=== PATIENT | female | born 1950 | race Caucasian/White ===

== ENCOUNTER 2016-08-31 12:36 | Emergency (ER) | payer OTHER, MEDICARE ==
--- NOTE | 2016-08-31 14:06 | XRAY ---
Indication: Left arm weakness. Multiple contiguous axial images obtained through the head without contrast. Comparison: None Ventriculosulcal pattern appears symmetric. Remote appearing left thalamic lacunar infarct. No acute intracranial hemorrhage, abnormal extra-axial fluid collection, or mass effect. Fourth ventricle is midline without hydrocephalus. Bony calvarium intact. Visualized paranasal sinuses and mastoid air cells are pneumatized and clear. Impression: Left thalamic remote lacunar infarct. No acute intracranial abnormalities. CT DI 90.14
--- NOTE | 2016-08-31 14:22 | ERPHSYRPT ---
- History of Present Illness Time Seen by Provider: 08/31/16 13:00 Source: patient Exam Limitations: clinical condition Patient Subjective Stated Complaint: pt arrived from work with numbness and tingling to left arm with weakness to hand. 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 able to walk in Physician History: PATIENT WITH HISTORY OF HYPERTENSION, CORONARY ARTERY DISEASE EMPLOYED IN [employer]PARTMENT FOR 20 YEARS WHILE WORKING COMPLAINS OF NUMBNESS WITH WEAKNESS IN LEFT FINGERS OF HANDS FOR A DURATION OF 1 HOUR. DENIES SLURRED SPEECH, HEADACHE, BLURRED VISION, LEFT ARM WEAKNESS OR UNSTABLE GAIT. STATES HER SYMPTOMS RESOLVED UPON ARRIVAL TO EMERGENCY ROOM. Timing/Duration: today Severity: moderate Character of Deficits: new weakness, altered sensation, LUE Deficits: weak (TRANSIENT WEAKNESS, NUMBNESS LEFT FINGERS) Baseline/Normal Cognition: alert oriented x 3 Current Cognition: alert oriented x 3 Baseline Gait: walks w/o assistance Associated Symptoms: denies symptoms Allergies/Adverse Reactions: No Known Drug Allergies Allergy (Unverified 08/31/16 12:47) Home Medications: Aspirin 162 mg PO DAILY 07/31/13 [History] Benazepril/Hydrochlorothiazide [Benazepril-Hctz 20-12.5 mg Tab] 1 each PO DAILY 07/31/13 [History] Metoprolol Tartrate 25 mg [Lopressor 25MG Tab] 25 mg PO DAILY 07/31/13 [ History] Multivitamin [Multi Vitamin Daily] 1 each PO DAILY 07/31/13 [History] Pravastatin Sodium 20 mg PO DAILY 07/31/13 [History] Calcium Carbonate/Vitamin D3 [Calcium 250+D Tablet] 1 ea WE 08/31/16 [History] Hx Influenza Vaccination/Date Given: Yes Hx Pneumococcal Vaccination/Date Given: Yes Immunizations Up to Date: Yes - Review of Systems Constitutional: No Fever, No Chills Eyes: No Symptoms Ears, Nose, & Throat: No Symptoms Respiratory: No Cough, No Dyspnea Cardiac: No Chest Pain, No Edema, No Syncope Abdominal/Gastrointestinal: No Abdominal Pain, No Nausea, No Vomiting, No Diarrhea Genitourinary Symptoms: No Dysuria Musculoskeletal: No Back Pain, No Neck Pain Skin: No Rash Neurological: Parasthesia, No Dizziness, No Focal Weakness, No Sensory Changes Psychological: No Symptoms Endocrine: No Symptoms All Other Systems: Reviewed and Negative - Past Medical History Pertinent Past Medical History: Yes Neurological History: No Pertinent History ENT History: No Pertinent History Cardiac History: Congestive Heart Failure, Hypertension Respiratory History: No Pertinent History Endocrine Medical History: Diabetes Type II Musculoskeletal History: Fractures GI Medical History: No Pertinent History History: No Pertinent History Psycho-Social History: No Pertinent History Female Reproductive Disorders: No Pertinent History - Past Surgical History Past Surgical History: Yes Neuro Surgical History: No Pertinent History Cardiac: Cardiac Catheterization, Cardiac Stent Respiratory: No Pertinent History Gastrointestinal: Cholecystectomy Genitourinary: No Pertinent History Musculoskeletal: Orthopedic Surgery Female Surgical History: Tubal Ligation, Other Other Surgical History: arm surg,tonsil - Social History Smoking Status: Never smoker Exposure to second hand smoke: No Drug Use: none Patient Lives Alone: Yes - Female History Hx Last Menstrual Period: post - Nursing Vital Signs Nursing Vital Signs: Initial Vital Signs Temperature 97 F Temperature Source Oral Pulse Rate 93 Respiratory Rate 16 Blood Pressure [Right Arm] 141/94 Pain Intensity 0 - Fowler Coma Scale Best Eye Response ([place]): (4) open spontaneously Best Verbal Response ([place]): (5) oriented Best Motor Response ([place]): (6) obeys commands [place] Total: 15 - Physical Exam General Appearance: no apparent distress, alert Eye Exam: bilateral eye: PERRL, EOMI Ears, Nose, Throat Exam: normal ENT inspection, moist mucous membranes Neck Exam: normal inspection, non-tender, supple Respiratory: normal breath sounds, lungs clear, airway intact, No respiratory distress Cardiovascular: regular rate/rhythm, No edema Gastrointestinal: soft, No tenderness, No distention Back Exam: normal inspection Extremity Exam: normal inspection, normal range of motion, other (NEGATIVE TINELS SIGN), No pedal edema Peripheral Pulses: carotid (R): 0, 2+, carotid (L): 2+, femoral (R): 2+, femoral (L): 2+, dorsalis-pedis (R): 2+, dorsalis-pedis (L): 2+ Mental Status: alert, oriented x 3 apparel cutter Exam: normal hearing, normal speech, PERRL, tongue midline Coordination/Gait: normal finger to nose, normal gait, normal cerebellar function Motor/Sensory: no motor deficit, no sensory deficit DTR: bicep (R): 2+, bicep (L): 2+, tricep (R): 2+, tricep (L): 2+, knee (R): 2+ , knee (L): 2+, ankle (R): 2+, ankle (L): 2+ Skin Exam: normal color, warm, dry, No rash SpO2 Interpretation: normal SpO2: 91 Oxygen Delivery: Room Air - CT Exams Head CT Interpretation: Discussed w/radiologist (LEFT THALAMIC REMOTE LACUNAR INFARCT ) Ordered Tests: Active Orders 24 hr Category Date Time Status HEAD WITHOUT CONTRAST [CT] Routine Exams 08/31/16 13:40 Completed - Progress Counseled pt/family regarding: diagnosis, need for follow-up - Departure Time of Disposition: 14:39 Departure Disposition: Home Clinical Impression: CARPAL TUNNEL SYNDROME LEFT WRIST Condition: Stable Critical Care Time: No Additional Instructions: CONTINUE ALL CURRENT MEDICATIONS. FOLLOWUP UP WITH FAMILY PHYSICIAN FOR EVALUATION AND REVIEW OF HEAD CT SCAN RESULTS.
[2016-08-31 14:52] VITALS: BP 119/77; PULSE 80; O2SAT 98
== END 2016-08-31 14:51 | disposition home or self-care (01) ==
LOC: ED 12:36
DX: G56.02 Carpal tunnel syndrome, left upper limb (principal); I10 Essential (primary) hypertension; I25.10 Atherosclerotic heart disease of native coronary artery without angina pectoris
CPT/HCPCS: 70450; 99284

== ENCOUNTER 2018-04-18 06:06 | Day surgery (SDC) | payer OTHER, MEDICARE ==
[2018-04-18] MEDS ORDERED: DIPRIVAN 200 MG/20 ML IV ONE (06:07)
[2018-04-18] MEDS ORDERED: Ketamine HCl 50 MG/ML IV ONE (06:07)
[2018-04-18] MEDS ORDERED: Lactated Ringers 1,000 ML IV SCH (07:00)
[2018-04-18 08:44] VITALS: O2SAT 100
[2018-04-18 09:16] VITALS: BP 144/96; PULSE 76
--- NOTE | 2018-04-18 12:49 | OP ---
SURGERY DATE/TIME: 04/18/2018 0754 PREOPERATIVE DIAGNOSIS: Screening exam. POSTOPERATIVE DIAGNOSIS: Normal colon. A few scattered sigmoid diverticula. PROCEDURE: Colonoscopy. SURGEON: Dr. Rose. ANESTHESIA: MAC. Medications given by anesthesia department. HISTORY: The patient is a 67 year-old white female who presents now for screening colonoscopy. She was appraised of the risks of the procedure including the risk of perforation, phlebitis, untoward reaction to medication, bleeding and missed lesions. The patient verbalized her understanding and desired to have the procedure performed. DESCRIPTION OF PROCEDURE: The patient was given the medications by the anesthesia department. She had continuous pulse oximetry, ECG monitoring, intermittent blood pressure monitoring and tidal CO2 monitoring during the examination. She was placed in the left lateral decubitus position. A digital rectal examination was performed and revealed normal anal sphincter tone and no masses. The flexible Olympus pediatric colonoscope was used to intubate the rectum. A view of the colon was developed sequentially to the cecum. Upon insertion and withdrawal, including a retroflex view in the rectum there was noted a few scattered sigmoid diverticula otherwise no mucosal lesions were encountered. The scope was removed from the patient who tolerated the procedure well and was sent back to OP recovery in good condition. The prep was noted to be fair to good.
== END 2018-04-18 09:32 | disposition home or self-care (01) ==
LOC: SDC 06:06
PROVIDERS: ATTEND Family Medicine
DX: Z12.11 Encounter for screening for malignant neoplasm of colon (principal); E11.9 Type 2 diabetes mellitus without complications; K57.30 Diverticulosis of large intestine without perforation or abscess without bleeding
CPT/HCPCS: 82962; 94250; J2704

== ENCOUNTER 2024-02-01 06:34 | Day surgery (SDC) | payer MEDICARE ==
[2024-02-01 06:53] VITALS: RESP 18
[2024-02-01] MEDS ORDERED: Lactated Ringers 1,000 ML IV ONE (06:58)
[2024-02-01] MEDS: Lactated Ringers 1,000 ML IV SCH (07:13)
[2024-02-01] MEDS ORDERED: DIPRIVAN 200 MG/20 ML IV ONE ×2 (07:55→08:23)
[2024-02-01 09:01] VITALS: TEMP 97.6; O2SAT 96
[2024-02-01 09:08] VITALS: BP 140/83; PULSE 60
--- NOTE | 2024-02-03 09:17 | OP ---
SURGERY DATE/TIME: 02/01/2024 [id number] PREOPERATIVE DIAGNOSIS: Positive Cologuard test and previous history of colon polyps. POSTOPERATIVE DIAGNOSIS: Small rectal polyp. PROCEDURE: Colonoscopy with cold forceps biopsy of small rectal polyp. SURGEON: Gadiel Rose MD ANESTHESIA: Medication given by the anesthesia department. INDICATIONS: The patient is a 73-year-old black female presenting now for colonoscopic evaluation. She reports that she has had previous colonoscopies, the first of which she had colon polyps. Since then, she has not. She most recently had a Cologuard test which was positive, prompting her to have reevaluation at this time. The patient was appraised of risks of the procedure including risk of perforation, phlebitis, untoward reaction to medication, bleeding, and missed lesions. The patient verbalized her understanding and desired to have the procedure performed. DESCRIPTION OF PROCEDURE AND FINDINGS: The patient was given medication by the anesthesia department. She had continuous pulse oximetry, ECG monitoring, and intermittent blood pressure monitoring during the examination. She was placed in the left lateral decubitus position. Digital rectal examination was performed and revealed external hemorrhoids. No masses were felt. The flexible Olympus videocolonoscope was used to intubate the rectum. A view of the colon was developed sequentially to the cecum. Upon insertion and withdrawal, there was noted a small polyp in the rectum. This was biopsied and destroyed using 1 pass of the cold forceps biopsy instrument. No other mucosal lesions being encountered, the scope was removed from the patient who tolerated the procedure well and sent back to outpatient recovery in good condition. The prep was noted to be fairly good.
== END 2024-02-01 09:20 | disposition home or self-care (01) ==
LOC: SDC 06:34
PROVIDERS: ATTEND Family Medicine
DX: Z09 Encounter for follow-up examination after completed treatment for conditions other than malignant neoplasm (principal); Z86.010 Personal history of colon polyps; R19.5 Other fecal abnormalities; E11.9 Type 2 diabetes mellitus without complications; D12.8 Benign neoplasm of rectum; K64.4 Residual hemorrhoidal skin tags
CPT/HCPCS: 82947; 93005; 99100; J2704

== ENCOUNTER 2024-04-19 14:38 | Emergency (ER) | payer MEDICARE ==
--- NOTE | 2024-04-19 15:06 | XRAY ---
Indication: Numbness. Stroke. Multiple contiguous axial images obtained through the head without contrast. Comparison: August 31, 2016 Age-appropriate global atrophy with mild periventricular degenerative micro-ischemia bilaterally. Stable left thalamic remote lacunar infarct. New finding right thalamic remote lacunar infarct. No acute intracranial hemorrhage, abnormal extra-axial fluid collection, or mass effect. Fourth ventricle is midline without hydrocephalus. Bony calvarium intact. Visualized paranasal sinuses and mastoid air cells are clear. Impression: Nonacute senile brain with remote bilateral thalamic lacunar infarcts.
--- NOTE | 2024-04-19 15:06 | ERPHSYRPT ---
- History of Present Illness Time Seen by Provider: 04/19/24 14:41 Source: patient, family Exam Limitations: no limitations Patient Subjective Stated Complaint: while in the car pt started slurring and garbling her speech and having left sided numbness, had similiar episodes earlier this past week Triage Nursing Assessment: Pt brought to the ER by her daughter in law, hypertensive, rates head pain as 3/10, pulses normal, skin n/w/d, no deficits at this time, no difficulty breathing, doesn't appear to be in any distress Physician History: 73-year-old female with multiple medical problems including coronary artery d isease with stenting, paroxysmal atrial fibrillation on Xarelto, hypertension, hyperlipidemia, diabetes mellitus, recent TIAs with our workup done at [facility], discharged last night was going to her routine appointment with cardiology and all of a sudden started to have some garbling of speech, numbness on the left upper extremity which lasted for few minutes and started to improve on presentation in the ER. During my evaluation patient has no difficulty speech, no numbness tingling or focal weakness. Denies any chest pain palpitations or shortness of breath. Allergies/Adverse Reactions: sulfamethoxazole [From Bactrim] Allergy (Verified 04/19/24 15:00) Rash trimethoprim [From Bactrim] Allergy (Verified 04/19/24 15:00) Rash Home Medications: Pravastatin Sodium 40 mg PO DAILY 07/31/13 [History] Omeprazole 20 MG [Prilosec 20 mg] 20 mg PO DAILY 04/15/18 [History] Rivaroxaban [Xarelto] 20 mg PO DAILY 04/15/18 [History] Alendronate Sodium 70 mg [Fosamax 70 MG] 70 mg PO WEEKLY 12/29/23 [History] Allopurinol 100 mg [Zyloprim 100 mg] 1 tab PO DAILY 12/29/23 [History] Buspirone HCl 5 mg [Buspar 5 mg] 10 mg PO BID 12/29/23 [History] Calcium Carb/Vitamin D 500 mg* [Calcium 500MG W/Vit D Tablet] 2 tab PO DAILY 0 12/29/23 [History] Clopidogrel Bisulfate [Clopidogrel] 75 mg PO DAILY 12/29/23 [History] Ferrous Sulfate 1 tab PO DAILY 12/29/23 [History] Metformin HCl [Metformin ER Osmotic] 500 tab PO BID 12/29/23 [History] Metoprolol Succinate 50 mg [Toprol Xl 50 MG] 50 mg PO BID 12/29/23 [History] PARoxetine HCL [Paroxetine HCl] 20 mg PO DAILY 12/29/23 [History] glyBURIDE [Glyburide] 2.5 mg PO BID 12/29/23 [History] Benazepril HCl [Lotensin] 20 mg PO DAILY 04/19/24 [History] Meloxicam 15 mg [Meloxicam 15 MG] 15 mg PO DAILY 04/19/24 [History] Hx Influenza Vaccination/Date Given: Yes Hx Pneumococcal Vaccination/Date Given: Yes Travel Risk - International Travel Have you traveled outside of the country in past 3 weeks: No - Emerging Infectious Disease Are you exhibiting symptoms associated with any current EIDs: No - Review of Systems Constitutional: No Symptoms Eyes: No Symptoms Ears, Nose, & Throat: No Symptoms Respiratory: No Symptoms Cardiac: No Symptoms Abdominal/Gastrointestinal: No Symptoms Genitourinary Symptoms: No Symptoms Musculoskeletal: No Symptoms Skin: No Symptoms Neurological: No Symptoms Endocrine: No Symptoms Hematologic/Lymphatic: No Symptoms - Past Medical History Pertinent Past Medical History: Yes Neurological History: TIA ENT History: No Pertinent History Cardiac History: Arrhythmia, Congestive Heart Failure, Coronary Artery Disease, Hypertension Respiratory History: No Pertinent History Endocrine Medical History: Diabetes Type II Musculoskeletal History: Fractures GI Medical History: No Pertinent History History: No Pertinent History Psycho-Social History: No Pertinent History Female Reproductive Disorders: No Pertinent History - Past Surgical History Past Surgical History: Yes Neuro Surgical History: No Pertinent History Cardiac: Cardiac Catheterization, Cardiac Stent Respiratory: No Pertinent History Gastrointestinal: Cholecystectomy Genitourinary: No Pertinent History Musculoskeletal: Orthopedic Surgery Female Surgical History: Tubal Ligation, Other Other Surgical History: arm surg,tonsil - Social History Smoking Status: Never smoker Exposure to second hand smoke: No Drug Use: none Patient Lives Alone: Yes - Social Determinants of Health Will the patient participate in the screening: Yes Do you worry about a steady place to live?: No Do you have any problems with any of the following?: No known problems In the past 12 months,have you had to go without utilities?: No Transportation Issues: No Has anyone in your support network made you feel unsafe?: No Have you or anyone in your house had to go without enough: No - Nursing Vital Signs Nursing Vital Signs: Initial Vital Signs Pulse Rate 111 H 04/19/24 16:15 Respiratory Rate 20 04/19/24 16:15 Blood Pressure 163/87 04/19/24 16:15 O2 Sat by Pulse Oximetry 94 L 04/19/24 16:15 Pain Scale Pain Intensity 0 - [place] Coma Scale Best Eye Response ([place]): (4) open spontaneously Best Verbal Response ([place]): (5) oriented Best Motor Response ([place]): (6) obeys commands [place] Total: 15 - Physical Exam General Appearance: no apparent distress, alert Eye Exam: bilateral eye: normal inspection, PERRL, EOMI Ears, Nose, Throat Exam: normal ENT inspection, TMs normal, pharynx normal, moist mucous membranes Neck Exam: normal inspection, non-tender, supple, full range of motion Respiratory: normal breath sounds, lungs clear Cardiovascular: regular rate/rhythm, normal heart sounds Gastrointestinal: soft, normal bowel sounds, No tenderness Back Exam: normal inspection Extremity Exam: normal inspection, normal range of motion Mental Status: alert, oriented x 3, cooperative laundry machine operator Exam: normal hearing, normal speech, PERRL Coordination/Gait: normal finger to nose, normal cerebellar function Motor/Sensory: no motor deficit, no sensory deficit, no pronator drift, negative Babinski's sign DTR: bicep (R): 2+, bicep (L): 2+, knee (R): 2+, knee (L): 2+ Skin Exam: normal color SpO2 Interpretation: normal SpO2: 96 O2 Delivery: Room Air - Course EKG Interpreted by Me: RATE (92), Sinus Rhythm, NORMAL AXIS, Q-wave, Other (Prolonged QTc interval, nonspecific ST and T wave changes second EKG rate 80 bpm, sinus rhythm, normal axis, PVCs, no ST elevations or depressions, nonspecific T wave changes.) Ordered Tests: Active Orders 24 hr Category Date Time Status Manager Home STAT Care 04/19/24 15:04 Active EKG-ER Only STAT Care 04/19/24 15:00 Active IV Insertion STAT Care 04/19/24 15:00 Active CHEST 1 VIEW (PORTABLE) Stat Exams 04/19/24 15:[address] ANGIOGRAPHY NECK [CT] Stat Exams 04/19/24 15:58 Taken CTA HEAD W AND/OR WO CONTRAST [CT] Stat Exams 04/19/24 15:58 Taken HEAD WITHOUT CONTRAST [CT] Stat Exams 04/19/24 14:39 Completed CBC W DIFF Stat Lab 04/19/24 15:15 Completed CMP Stat Lab 04/19/24 15:15 Completed CULTURE,URINE Stat Lab 04/19/24 16:18 Received MAGNESIUM Stat Lab 04/19/24 15:15 Completed NT PRO BNPII Stat Lab 04/19/24 15:15 Completed TROPONIN Stat Lab 04/19/24 15:15 Completed UA W/RFX UR CULTURE Stat Lab 04/19/24 16:18 Completed Medication Summary Generic Name Dose Route Start Last Admin Trade Name Freq PRN Reason Stop Dose Admin Magnesium Sulfate/Dextrose 100 mls @ 100 mls/hr 04/19/24 17:30 04/19/24 18:05 Magnesium 1 Gm / 100 Ml D5w IV 04/19/24 19:29 100 mls/hr Q1H HITESH Administration Discontinued Medications Generic Name Dose Route Start Last Admin Trade Name Freq PRN Reason Stop Dose Admin Ceftriaxone Sodium 2 gm in 100 mls @ 200 mls/hr 04/19/24 17:48 Rocephin 2 Gm/100 Ml Nacl IV 04/19/24 18:17 STAT ONE Lab/Rad Data: Laboratory Result Diagrams 04/19/24 15:15 04/19/24 15:15 Laboratory Results 04/19/24 04/19/24 04/19/24 Range/Units 16:18 15:15 15:15 WBC 8.6 (3.98-10.04) x10^3/uL RBC 3.88 L (3.93-5.22) x10^6/uL Hgb 11.8 (11.2-15.7) g/dL Hct 37.2 (34.1-44.9) % MCV 95.9 H (79.4-94.8) fL MCH 30.4 (25.6-32.2) pg MCHC 31.7 L (32.2-35.5) g/dL RDW 13.9 (11.7-14.4) % Plt Count 180 L (182-369) x10^3/uL MPV 9.0 L (9.4-12.3) fL Gran % 74.4 H (34.0-71.1) % Immature Gran % (Auto) 0.4 (0.001-0.429) % Nucleat RBC Rel Count 0.0 (0.00-0.2) % Eos # (Auto) 0.18 (0.04-0.36) x10^3/uL Immature Gran # (Auto) 0.03 (0.001-0.031) x10^3u/L Absolute Lymphs (auto) 1.22 (1.18-3.74) x10^3/uL Absolute Monos (auto) 0.71 (0.24-0.86) x10^3/uL Absolute Nucleated RBC 0.00 (0.00-0.012) x10^3u/L Lymphocytes % 14.3 L (19.3-51.7) % Monocytes % 8.3 (4.7-12.5) % Eosinophils % 2.1 (0.7-5.8) % Basophils % 0.5 (0.1-1.2) % Absolute Granulocytes 6.37 H (1.56-6.13) x10^3/uL Basophils # 0.04 (0.01-0.08) x10^3/uL Sodium 135 (135-145) mmol/L Potassium 3.9 (3.5-5.1) mmol/L Chloride 104 (98-107) mmol/L Carbon Dioxide 24 (22-30) mmol/L Anion Gap 11.0 (5-15) MEQ/L BUN 16 (7-17) mg/dL Creatinine 0.85 (0.52-1.04) mg/dL Estimated GFR 71.9 ML/MIN Glucose 141 H (74-106) mg/dL Calcium 8.8 (8.4-10.2) mg/dL Magnesium 1.4 L (1.6-2.3) mg/dL Total Bilirubin 1.50 H (0.2-1.3) mg/dL AST 37 H (14-36) U/L ALT 25 (0-35) U/L Alkaline Phosphatase 52 (38-126) U/L Troponin I 0.229 H* (0.000-0.033) ng/mL NT-Pro-B Natriuret Pep 4050 (<300) pg/mL Serum Total Protein 6.8 (6.3-8.2) g/dL Albumin 3.8 (3.5-5.0) g/dL Urine Color Dark Yellow A (Yellow) Urine Appearance Cloudy A (Clear) Urine pH 5.5 (4.6-8.0) Ur Specific [place] 1.025 (1.005-1.030) Urine Protein 30 (Negative) Urine Glucose (UA) Negative (Negative) mg/dL Urine Ketones Trace A (Negative) Urine Blood Trace (Negative) Urine Nitrite Positive A (Negative) Urine Bilirubin Negative (Negative) Urine Urobilinogen 0.2 (0.2) mg/dL Ur Leukocyte Esterase Moderate A (Negative) U Hyaline Cast (Auto) NONE SEEN (0-2) /LPF Urine Microscopic RBC 0-2 (0-5) /HPF Urine Microscopic WBC 21-50 A (0-5) /HPF Ur Epithelial Cells Rare (None Seen) /HPF Calcium Oxalate Crystal 11-25 A (None Seen) /HPF Urine Bacteria Moderate A (None Seen) /HPF Urine Culture Reflexed YES (NO) - Progress Progress: improved Progress Note: 04/19/24 18:22 73-year-old with history of paroxysmal atrial fibrillation on Xarelto, CAD with stenting, diabetes mellitus is evaluated in the ER for recurrent episodes of TIA. Patient is asymptomatic while in the ER. CT head is negative. EKG is sinus rhythm with no ST elevation, does have some T wave flattening and inversion in anteroseptal leads. She has no chest pain. [facility] neurology consult is obtained who has seen patient, recommended starting her on aspirin and holding Plavix and getting CTA head and neck. CTA head and neck are obtained which are negative for any occlusive findings. Normal white count, chemistries fairly unremarkable but has elevated troponin of 0.2, patient does not have any chest pain and repeat EKG is not any change. We do not have beds available at [facility], no neurology services are available in [place]. Patient does not want to go back to [facility], I have called [facility] and have d/w Dr. Murrell neurology at [place], yunier ac history, workup, agreed with transfer to hospitalist service. 04/19/24 18:[address] Dorsey hospitalist at [facility] and patient is excepted for transfer. Discussed with Dr.: Other (Dr. Willow ELLISON neurology, Dr. Murrell neurology [facility], Dr. Dorsey hospitalist [facility].) Counseled pt/family regarding: lab results, diagnosis, need for follow-up, rad results Medical Desision Making - Independent Historian Additional History obtained from: Child - Discussion of managment Care discussed with:: specialist Reviewed:: Test results, Need for additional workup Agreed on:: Treatment plan Will see patient: in hospital - Diagnostic Testing Diagnostic test were ordered, analyzed, and reviewed by me: Yes Radiological Interpretation: Reviewed by me - Risk of complications The pt has a mod risk of morbidity or mortality based on: Need for prescription drug management The pt has a high risk of morbidity or mortality based on: Decision regarding hospitilization or escalation of hosp level of care - Departure Departure Disposition: Transfer Clinical Impression: TIA (transient ischemic attack), NSTEMI (non-ST elevated myocardial infarction) Condition: Stable Critical Care Time: No Referrals: ADRIAN WAITE [Primary Care Provider] - Follow up/PCP as directed
[2024-04-19 15:21] LABS: Absolute Neutrophil Ct (ANC) 6.37 x10^3/uL (1.56-6.13); BASOPHIL % 0.5 % (0.1-1.2); Basophil (Absolute #) 0.04 x10^3/uL (0.01-0.08); Eosinophil % 2.1 % (0.7-5.8); Eosinophil (Absolute #) 0.18 x10^3/uL (0.04-0.36); Hematocrit 37.2 % (34.1-44.9); Hemoglobin 11.8 g/dL (11.2-15.7); IMMATURE GRAN # 0.03 x10^3u/L (0.001-0.031); IMMATURE GRAN % 0.4 % (0.001-0.429); Lymphocyte (Absolute #) 1.22 x10^3/uL (1.18-3.74); Lymphocytes % 14.3 % (19.3-51.7); Mean Cell Volume 95.9 fL (79.4-94.8); Mean Corpuscular Hemoglobin 30.4 pg (25.6-32.2); Mean Corpuscular Hgb Concent. 31.7 g/dL (32.2-35.5); Monocyte (Absolute #) 0.71 x10^3/uL (0.24-0.86); Monocytes % 8.3 % (4.7-12.5); Neutrophil % 74.4 % (34.0-71.1); Platelet Count 180 x10^3/uL (182-369); Red Blood Count 3.88 x10^6/uL (3.93-5.22); Red Cell Distribution Width 13.9 % (11.7-14.4); White Blood Count 8.6 x10^3/uL (3.98-10.04)
--- NOTE | 2024-04-19 15:29 | XRAY ---
Indication: Stroke. Comparison: None Portable chest demonstrates borderline cardiomegaly with mild pulmonary edema. No consolidation/large effusion. Incidental right apical discoid atelectasis/scarring and left mid lung calcified granuloma. Bony thorax intact with osteopenia, degenerative changes, and old bilateral humeral fractures.
[2024-04-19 15:46] LABS: ALBUMIN 3.8 g/dL (3.5-5.0); BILIRUBIN,TOTAL 1.5 mg/dL (0.2-1.3); Calcium 8.8 mg/dL (8.4-10.2); Creatinine 1 0.85 mg/dL (0.52-1.04); EST GLOMERULAR FILTRATION RATE 71.9 ML/MIN; MAGNESIUM 1.4 mg/dL (1.6-2.3); Potassium 3.9 mmol/L (3.5-5.1); Total Protein 6.8 g/dL (6.3-8.2)
[2024-04-19 16:12] LABS: TROPONIN 0.229 ng/mL (0.000-0.033)
[2024-04-19] MEDS ORDERED: Magnesium 1 Gm / 100 Ml D5W*** 200 ML IV ONE (17:25)
[2024-04-19] MEDS: Magnesium 1 Gm / 100 Ml D5W*** 100 ML IV SCH (17:28)
[2024-04-19 17:33] LABS: Appearance Cloudy (Clear); Bilirubin Negative (Negative); Blood Trace (Negative); Glucose, Urine Negative (Negative); Hyaline Casts NONE SEEN /LPF (0-2); Ketones Trace (Negative); Leukocyte Esterase Moderate (Negative); Nitrite Positive (Negative); Ph 5.5 (4.6-8.0); Protein,Urine Dip 30 (Negative); Specific Gravity 1.025 (1.005-1.030); Urobilinogen 0.2 mg/dL (0.2)
[2024-04-19 17:34] LABS: Bacteria Moderate /HPF (None Seen); Epithelial Cells Rare /HPF (None Seen); RBC 0-2 /HPF (0-5); WBC 21-50 /HPF (0-5)
[2024-04-19 17:36] VITALS: RESP 18
[2024-04-19] MEDS ORDERED: ROCEPHIN 2 GM/100 ML NACL 2 GM/100 ML IVPB IV ONE (18:48)
[2024-04-19] MEDS: ROCEPHIN 2 GM/100 ML NACL 2 GM/100 ML IVPB IV ONE (18:49)
[2024-04-19 20:03] VITALS: O2SAT 98
--- NOTE | 2024-04-19 22:05 | XRAY ---
Indication: Stroke symptoms. Conventional contrast enhanced CTA neck performed using 80 cc Isovue 370 contrast. 2-D sagittal and coronal reformatted images obtained. Additional 3-D reformatted images obtained using a separate workstation. Comparison: None Aortic arch minimally arteriosclerotic with normal branching right brachiocephalic, left common carotid, and left subclavian arteries. Minimal calcifications origin left subclavian artery. Examination right carotid circulation demonstrates widely patent common carotid artery. Minimal calcifications carotid bulb and origin external carotid artery. Mild eccentric calcifications origin/proximal internal carotid artery producing less than 50% stenosis. Examination left carotid circulation demonstrates widely patent common carotid and external carotid arteries. Minimal calcifications carotid bulb and origin/proximal external carotid artery. Vertebral arteries are bilaterally patent with the left larger in caliber. Visualized soft tissues demonstrates heterogeneous thyroid gland with 5 mm right lobe hypodense nodule/cyst. Centimeter and subcentimeter cervical/submandibular lymph nodes. No pathologic lymphadenopathy. Parotid and submandibular glands are bilaterally symmetric. Supra and infraglottic airway widely patent. Normal epiglottis. Results osseous structures intact with osteopenia and minimal degenerative changes upper thoracic spine. Lung apices demonstrates scattered fibrosis/scarring. Impression: 1. Minimal/mild scattered arteriosclerotic disease, right carotid circulation greater than left as detailed. 2. Normal CTA appearance vertebral arteries with dominant left vertebral artery. 3. Incidental heterogeneous thyroid gland, tiny right lobe thyroid hypodense nodule/cyst, chronic bony findings, and pulmonary fibrosis/scarring.
--- NOTE | 2024-04-19 22:09 | XRAY ---
Indication: Stroke symptoms. Conventional contrast enhanced CTA head performed using 80 cc Isovue 370 contrast. 2-D sagittal and coronal reformatted images obtained. Additional 3-D reformatted images obtained using a separate workstation. Comparison: None Distal internal carotid arteries are bilaterally symmetric with mild scattered calcifications both parasellar segments without critical stenosis/obstruction. Normal carotid terminus with normal branching A1 and M1 segments bilaterally. More distal anterior and middle cerebral arteries are normal in CTA appearance. Also normal appearing anterior communicating and posterior communicating arteries. Posterior circulation demonstrates minimal calcifications distal left vertebral artery. Otherwise normal CTA appearance to the basilar, left/right posterior cerebral, and left/right superior cerebellar arteries. Venous sinuses/drainage demonstrates incidental small arachnoid granulation left transverse sinus. Brain parenchyma negative for abnormal enhancing intra-or extra-axial mass. Impression: Mild scattered arteriosclerotic disease in both parasellar internal carotid arteries and lesser degree distal left vertebral artery. Remaining CTA head with contrast exam is negative for critical stenosis/obstruction.
[2024-04-19 22:11] VITALS: BP 145/69; PULSE 88
== END 2024-04-19 22:30 | disposition short-term general hospital (02) ==
LOC: ED 14:38
DX: G45.9 Transient cerebral ischemic attack, unspecified (principal); I21.4 Non-ST elevation (NSTEMI) myocardial infarction; Z86.79 Personal history of other diseases of the circulatory system
CPT/HCPCS: 36415; 70450; 70496; 70498; 71045; 80053; 81001; 83735; 83880; 84484; 85025; 87077; 87086; 87186; 93005; 93041; 96365; 99285; Q3014; J0696; J3475